=== PATIENT | female | born 1975 | race Asian ===

== ENCOUNTER 2020-12-23 12:27 | Emergency (ER) | payer OTHER ==
[~2020-12-23] VITALS: Ht 152.4 cm; Wt 61.8 kg
[2020-12-23 13:14] VITALS: BP 111/67
[2020-12-23 13:45] LABS: BILIRUBIN,URINE NEGATIVE (NEG); COLOR,URINE YELLOW; NITRITE,URINE NEGATIVE (NEG); PROTEIN,URINE 100 mg/dL (NEG-TRACE); UROBILINOGEN,URINE 0.2 mg/dL (0.2 mg/dL)
[2020-12-23 13:56] LABS: CLARITY,URINE HAZY
[2020-12-23 13:58] LABS: BACTERIA,URINE MANY /HPF (0-FEW); WBC,URINE >40 /HPF (0-4)
[2020-12-23] MEDS ORDERED: AMOX875T PO (14:38)
--- NOTE | 2020-12-23 14:38 | PHYS DOC ---
Past Medical History Past Medical History: Depression, Diabetes-Type II, High Cholesterol, Hyp ertension Past Surgical History: Smoking Status: Never Smoker Alcohol Use: None General Adult EDM: Chief Complaint: MULTIPLE COMPLAINTS HPI: HPI: Patient is a 45 year old female with history of diabetes type 2, hypertension, high cholesterol presenting with sore throat for 3 days and dysuria for 4 days. Denies any fever. Denies any difficulty swallowing. Review of Systems: Review of Systems: Constitutional: Denies fever or chills. [] Eyes: Denies change in visual acuity. [] HENT: Reports sore throat, denies any congestion Respiratory: Denies cough or shortness of breath. [] Cardiovascular: Denies chest pain or edema. [] GI: Denies abdominal pain, nausea, vomiting, bloody stools or diarrhea. [] : Reports dysuria Musculoskeletal: Denies back pain or joint pain. [] Integument: Denies rash. [] Neurologic: Denies headache, focal weakness or sensory changes. [] Psychiatric: Denies depression or anxiety. [] Heart Score: C/O Chest Pain: N/A Risk Factors: Risk Factors: DM, Current or recent (<one month) smoker, HTN, HLP, family his tory of CAD, obesity. Risk Scores: Score 0 - 3: 2.5% MACE over next 6 weeks - Discharge Home Score 4 - 6: 20.3% MACE over next 6 weeks - Admit for Clinical Observation Score 7 - 10: 72.7% MACE over next 6 weeks - Early Invasive Strategies Allergies: Allergies: Allergies Coded Allergies Type Severity Reaction Last Updated Verified No Known Drug Allergies 12/23/20 No Physical Exam: PE: Constitutional: Well developed, well nourished, no acute distress, non-toxic appearance. [] HENT: Normocephalic, atraumatic, bilateral external ears normal, oropharynx moist, no oral exudates, nose normal. [] Eyes: PERRLA, EOMI, conjunctiva normal, no discharge. [] Neck: Normal range of motion, no tenderness, supple, no stridor. [] Cardiovascular:Heart rate regular rhythm, no murmur [] Lungs & Thorax: Bilateral breath sounds clear to auscultation [] Abdomen: Bowel sounds normal, soft, no tenderness, no masses, no pulsatile masses. [] Skin: Warm, dry, no erythema, no rash. [] Back: No tenderness, no CVA tenderness. [] Extremities: No tenderness, no cyanosis, no clubbing, ROM intact, no edema. [] Neurologic: Alert and oriented X 3, normal motor function, normal sensory functi on, no focal deficits noted. [] Psychologic: Affect normal, judgement normal, mood normal. [] Current Patient Data: Labs: Laboratory Tests Test 12/23/20 12:56 12/23/20 13:06 12/23/20 13:48 Urine Collection Type Unknown Urine Color Yellow Urine Clarity Hazy Urine pH 6.0 (<5.0-8.0) Urine Specific [place] >=1.030 (1.000-1.030) Urine Protein 100 mg/dL (NEG-TRACE) Urine Glucose (UA) >=1000 mg/dL (NEG) Urine Ketones (Stick) Negative mg/dL (NEG) Urine Blood Moderate (NEG) Urine Nitrite Negative (NEG) Urine Bilirubin Negative (NEG) Urine Urobilinogen Dipstick 0.2 mg/dL (0.2 mg/dL) Urine Leukocyte Esterase Small (NEG) Urine RBC 3-5 /HPF (0-2) Urine WBC >40 /HPF (0-4) Urine Squamous Epithelial Cells Mod /LPF Urine Bacteria Many /HPF (0-FEW) POC Urine HCG, Qualitative Hcg negative (Negative) Group A Streptococcus Rapid Negative (NEGATIVE) Vital Signs: Vital Signs Date Time Temp Pulse Resp B/P (MAP) Pulse Ox O2 Delivery O2 Flow Rate FiO2 12/23/20 13:14 97.9 69 20 111/67 (82) 98 Room Air 97.9 EKG: EKG: [] Radiology/Procedures: Radiology/Procedures: [] Course & Med Decision Making: Course & Med Decision Making Pertinent Labs and Imaging studies reviewed. (See chart for details) This is a 45-year-old female patient with dysuria and a sore throat, negative rapid strep, positive for UTI, discharged with amoxicillin. Follow-up with PCP. Marlene Disclaimer: Marlene Disclaimer: This electronic medical record was generated, in whole or in part, using a voice recognition dictation system. Departure Departure Impression: Primary Impression: UTI (urinary tract infection) Qualified Codes: N39.0 - Urinary tract infection, site not specified Additional Impression: Acute viral pharyngitis Disposition: HOME / SELF CARE / HOMELESS Condition: STABLE Referrals: LAURO CRABTREE MD (PCP) follow up in one week Patient Instructions: Urinary Tract Infection, Viral and Bacterial Pharyngitis Additional Instructions: You have urinary tract infection, your strep test is negative. Take the prescribed antibiotics until completed. Follow-up with your primary care doctor in 1 week. You can use salt water gargles as needed for sore throat you can take Tylenol/Motrin for pain Scripts Amoxicillin (AMOXICILLIN) 875 Mg Tablet 1 TAB PO BID, #14 TAB Prov: ESTELITA GONZALEZ APRN 12/23/20 ESTELITA GONZALEZ APRN December 23, 2020 14:38
== END 2020-12-23 14:45 | disposition home or self-care (01) ==
LOC: ER 12:27
DX: N39.0 Urinary tract infection, site not specified (principal); J02.8 Acute pharyngitis due to other specified organisms; F32.9 Major depressive disorder, single episode, unspecified; E11.9 Type 2 diabetes mellitus without complications; E78.00 Pure hypercholesterolemia, unspecified; I10 Essential (primary) hypertension; Z98.890 Other specified postprocedural states
CPT/HCPCS: 81001; 81025; 87070; 87086; 87880; 99283

== ENCOUNTER 2020-12-30 10:37 | Emergency (ER) | payer OTHER ==
[~2020-12-30] VITALS: Ht 152.4 cm; Wt 60.9 kg
[~2020-12-30 10:37] MED LIST: AMOX875T PO
[2020-12-30 10:40] VITALS: BP 136/65
[2020-12-30 11:38] LABS: BILIRUBIN,URINE NEGATIVE (NEG); CLARITY,URINE CLEAR; COLOR,URINE YELLOW; NITRITE,URINE NEGATIVE (NEG); PH,URINE 5.5 (<5.0-8.0); PROTEIN,URINE NEGATIVE (NEG-TRACE); UROBILINOGEN,URINE 0.2 mg/dL (0.2 mg/dL)
[2020-12-30 12:00] LABS: BACTERIA,URINE 0 /HPF (0-FEW); RBC,URINE 0 /HPF (0-2); WBC,URINE 0 /HPF (0-4)
[2020-12-30] MEDS ORDERED: NYSTATIN 100,000 UNIT/GM TOPICAL CREAM 15GM TUBE. TP ONE (12:15)
--- NOTE | 2020-12-30 14:00 | RAD ---
US PELVIS W/TV DATE: 12/30/2020 12:47 PM HISTORY: pelvic pain. LMP: ? approximately 1 month ago. History of x2. COMPARISON: None. TECHNIQUE: Transabdominal and transvaginal pelvic ultrasound was performed. FINDINGS: The uterus measures 8.4 x 4.6 x 4.5 cm. Slightly lobular appearance along the anterior aspect of the uterus. The endometrial echo measures 5 mm. Trace fluid in the endometrial cavity. Nabothian cyst. The right ovary measures 3.0 x 3.2 x 1.9 cm. The left ovary measures 1.4 x 1.7 x 1.1 cm. The bilatera l ovaries are physiologic in appearance. Normal vascularity in the bilateral ovaries by color Doppler examination. IMPRESSION: 1. No evidence of ovarian torsion. 2. Slightly lobular appearance to the anterior aspect of the uterus could relate to underlying fibroi d or possibly postsurgical change given prior Electronically signed by: Jonel Fuentes MD (12/30/2020 1:57 PM) EMILEE
--- NOTE | 2020-12-30 14:12 | PHYS DOC ---
Past Medical History Past Medical History: Depression, Diabetes-Type II, High Cholesterol, Hyp ertension, Other Additional Past Medical Histor: CHRONIC BACK PAIN Past Surgical History: , Tubal ligation Smoking Status: Never Smoker Alcohol Use: None General Adult EDM: Chief Complaint: VAGINAL PROBLEM HPI: HPI: Patient is a 45 year old female with history of depression, diabetes type 2, hypertension, high cholesterol, who presents today complaining of vaginal itching, suprapubic pain, symptoms began 6 to 7 days ago. Patient was seen in the ED almost a week ago and was treated for UTI and pharyngitis with amoxicillin. Denies any concerns for STDs. Denies any fever. Denies any dysuria. Barley Steeper line was used for [facility] Review of Systems: Review of Systems: Constitutional: Denies fever or chills. [] Eyes: Denies change in visual acuity. [] HENT: Denies nasal congestion or sore throat. [] Respiratory: Denies cough or shortness of breath. [] Cardiovascular: Denies chest pain or edema. [] GI: Denies abdominal pain, nausea, vomiting, bloody stools or diarrhea. [] : Reports suprapubic pain, vaginal itching, denies dysuria. [] Musculoskeletal: Denies back pain or joint pain. [] Integument: Denies rash. [] Neurologic: Denies headache, focal weakness or sensory changes. [] Psychiatric: Denies depression or anxiety. [] Heart Score: C/O Chest Pain: N/A Risk Factors: Risk Factors: DM, Current or recent (<one month) smoker, HTN, HLP, family history of CAD, obesity. Risk Scores: Score 0 - 3: 2.5% MACE over next 6 weeks - Discharge Home Score 4 - 6: 20.3% MACE over next 6 weeks - Admit for Clinical Observation Score 7 - 10: 72.7% MACE over next 6 weeks - Early Invasive Strategies Current Medications: Current Medications Medications (Trade) Dose Ordered Sig/Karlo Start Time Stop Time Status Last Admin Dose Admin Nystatin (Mycostatin) 1 shavonne 1X ONCE 12/30/20 12:15 12/30/20 12:16 DC 12/30/20 12:25 1 SHAVONNE Allergies: Allergies: Allergies Coded Allergies Type Severity Reaction Last Updated Verified No Known Drug Allergies 12/23/20 No Physical Exam: PE: Constitutional: Well developed, well nourished, no acute distress, non-toxic appearance. [] HENT: Normocephalic, atraumatic, bilateral external ears normal, oropharynx moist, no oral exudates, nose normal. [] Eyes: PERRLA, EOMI, conjunctiva normal, no discharge. [] Neck: Normal range of motion, no tenderness, supple, no stridor. [] Cardiovascular:Heart rate regular rhythm, no murmur [] Lungs & Thorax: Bilateral breath sounds clear to auscultation [] Abdomen: Bowel sounds normal, soft, no tenderness, no masses, no pulsatile masses. [] Pelvic exam External pelvic appears normal, no lesions noted. Cervix is visualized, is closed, no CMT, no adnexal tenderness, trace amount of white discharge in the vaginal vault Skin: Warm, dry, no erythema, no rash. [] Back: No tenderness, no CVA tenderness. [] Extremities: No tenderness, no cyanosis, no clubbing, ROM intact, no edema. [] Neurologic: Alert and oriented X 3, normal motor function, normal sensory function, no focal deficits noted. [] Psychologic: Affect normal, judgement normal, mood normal. [] Current Patient Data: Labs: Laboratory Tests Test 12/30/20 11:00 Urine Collection Type Unknown Urine Color Yellow Urine Clarity Clear Urine pH 5.5 (<5.0-8.0) Urine Specific [place] 1.015 (1.000-1.030) Urine Protein Negative mg/dL (NEG-TRACE) Urine Glucose (UA) >=1000 mg/dL (NEG) Urine Ketones (Stick) Negative mg/dL (NEG) Urine Blood Negative (NEG) Urine Nitrite Negative (NEG) Urine Bilirubin Negative (NEG) Urine Urobilinogen Dipstick 0.2 mg/dL (0.2 mg/dL) Urine Leukocyte Esterase Negative (NEG) Urine RBC 0 /HPF (0-2) Urine WBC 0 /HPF (0-4) Urine Squamous Epithelial Cells Mod /LPF Urine Bacteria 0 /HPF (0-FEW) Microbiology 12/30/20 Wet Prep - Final, Complete Vital Signs: Vital Signs Date Time Temp Pulse Resp B/P (MAP) Pulse Ox O2 Delivery O2 Flow Rate FiO2 12/30/20 10:40 98.4 85 20 136/65 (88) 96 Room Air 98.4 EKG: EKG: [] Radiology/Procedures: Radiology/Procedures: []PROCEDURE: PELVIS W/TV US PELVIS W/TV DATE: 12/30/2020 12:47 PM HISTORY: pelvic pain. LMP: ? approximately 1 month ago. History of x2. COMPARISON: None. TECHNIQUE: Transabdominal and transvaginal pelvic ultrasound was performed. FINDINGS: The uterus measures 8.4 x 4.6 x 4.5 cm. Slightly lobular appearance along the anterior aspect of the uterus. The endometrial echo measures 5 mm. Trace fluid in the endometrial cavity. Nabothian cyst. The right ovary measures 3.0 x 3.2 x 1.9 cm. The left ovary measures 1.4 x 1.7 x 1.1 cm. The bilateral ovaries are physiologic in appearance. Normal vascularity in the bilateral ovaries by color Doppler examination. IMPRESSION: 1. No evidence of ovarian torsion. 2. Slightly lobular appearance to the anterior aspect of the uterus could relate to underlying fibroid or possibly postsurgical change given prior Electronically signed by: Abi Fuentes MD (12/30/2020 1:57 PM) [facility] DICTATED and SIGNED BY: ABI FUENTES MD DATE: 12/30/20 [id number] 0 Course & Med Decision Making: Course & Med Decision Making Pertinent Labs and Imaging studies reviewed. (See chart for details) This is a 45-year-old female patient presented to the ED today with vaginal itching and suprapubic pain, symptoms began 10 days ago. Patient was treated for UTI almost a week ago. Wet prep is negative, UA is negative. Bedside glucose is 105. Pelvic ultrasound noted for fibroids f/u with OB.Discharge to home with nystatin. Dragon Disclaimer: Dragon Disclaimer: This electronic medical record was generated, in whole or in part, using a voice recognition dictation system. Departure Departure Impression: Primary Impression: Vaginal itching Additional Impression: Fibroids Disposition: HOME / SELF CARE / HOMELESS Condition: STABLE Referrals: LAURO CRABTREE MD (PCP) follow up next week DAVID SCHREIBER MD follow up in 1-3 weeks Patient Instructions: Fibroids, [id number]-Ezia, Vaginitis, [id number] Additional Instructions: You have fibroids. Please see the [employer] provided in 1 to 3 weeks please apply the cream to the exterior vagina 3 times a day. You can take Benadryl as needed for itching. Follow-up with the primary care doctor next week. Consider taking probiotics for a week ESTELITA GONZALEZ APRN Dec 30, 2020 14:12
[2020-12-31 15:13] LABS: GC PROBE Negative (Negative)
== END 2020-12-30 14:48 | disposition home or self-care (01) ==
LOC: ER 10:37
DX: D36.7 Benign neoplasm of other specified sites (principal); L29.8 Other pruritus; F32.9 Major depressive disorder, single episode, unspecified; E11.9 Type 2 diabetes mellitus without complications; E78.00 Pure hypercholesterolemia, unspecified; I10 Essential (primary) hypertension; G89.29 Other chronic pain; Z98.51 Tubal ligation status
CPT/HCPCS: 76830; 76856; 81001; 82962; 87491; 87591; 99284; Q0111

== ENCOUNTER 2021-05-07 14:31 | Emergency (ER) | payer OTHER ==
[~2021-05-07] VITALS: Ht 152.4 cm; Wt 60.0 kg
[2021-05-07 15:36] LABS: BILIRUBIN,URINE NEGATIVE (NEG); CLARITY,URINE CLEAR; NITRITE,URINE NEGATIVE (NEG); PROTEIN,URINE NEGATIVE (NEG-TRACE); UROBILINOGEN,URINE 0.2 mg/dL (0.2 mg/dL)
[2021-05-07 15:46] LABS: COLOR,URINE STRAW; WBC,URINE >40 /HPF (0-4)
[2021-05-07 15:48] LABS: BACTERIA,URINE FEW /HPF (0-FEW)
[2021-05-07 16:03] VITALS: BP 116/69
[2021-05-07] MEDS ORDERED: CEPH500T PO ×2 (16:16→16:17)
[2021-05-07] MEDS ORDERED: PHEN100T82 PO ×2 (16:16→16:17)
--- NOTE | 2021-05-07 16:17 | PHYS DOC ---
Past Medical History Past Medical History: Depression, Diabetes-Type II, High Cholesterol, Hyp ertension, Other Additional Past Medical Histor: CHRONIC BACK PAIN Past Surgical History: , Tubal ligation Smoking Status: Never Smoker Alcohol Use: None General Adult EDM: Chief Complaint: PAIN ON URINATION HPI: HPI: Patient is a 45 year old female with a history of diabetes type 2, hypertension, high cholesterol, who presents to the ED today complaining of dysuria for 7 days. Patient denies any fever, nausea or vomiting. Patient is Persian speaking and traffic signal supervisor maintenance line was used but she spent a lot of time talking on the line Review of Systems: Review of Systems: Constitutional: Denies fever or chills. [] Eyes: Denies change in visual acuity. [] HENT: Denies nasal congestion or sore throat. [] Respiratory: Denies cough or shortness of breath. [] Cardiovascular: Denies chest pain or edema. [] GI: Denies abdominal pain, nausea, vomiting, bloody stools or diarrhea. [] : Reports dysuria Musculoskeletal: Denies back pain or joint pain. [] Integument: Denies rash. [] Neurologic: Denies headache, focal weakness or sensory changes. [] Psychiatric: Denies depression or anxiety. [] Heart Score: C/O Chest Pain: N/A Risk Factors: Risk Factors: DM, Current or recent (<one month) smoker, HTN, HLP, family history of CAD, obesity. Risk Scores: Score 0 - 3: 2.5% MACE over next 6 weeks - Discharge Home Score 4 - 6: 20.3% MACE over next 6 weeks - Admit for Clinical Observation Score 7 - 10: 72.7% MACE over next 6 weeks - Early Invasive Strategies Allergies: Allergies: Allergies Coded Allergies Type Severity Reaction Last Updated Verified No Known Drug Allergies 12/23/20 No Physical Exam: PE: Constitutional: Well developed, well nourished, no acute distress, non-toxic appearance. [] HENT: Normocephalic, atraumatic, bilateral external ears normal, oropharynx moist, no oral exudates, nose normal. [] Eyes: PERRLA, EOMI, conjunctiva normal, no discharge. [] Neck: Normal range of motion, no tenderness, supple, no stridor. [] Cardiovascular:Heart rate regular rhythm, no murmur [] Lungs & Thorax: Bilateral breath sounds clear to auscultation [] Abdomen: Bowel sounds normal, soft, no tenderness, no masses, no pulsatile masses. [] Skin: Warm, dry, no erythema, no rash. [] Back: No tenderness, no CVA tenderness. [] Extremities: No tenderness, no cyanosis, no clubbing, ROM intact, no edema. [] Neurologic: Alert and oriented X 3, normal motor function, normal sensory function, no focal deficits noted. [] Psychologic: Affect normal, judgement normal, mood normal. [] Current Patient Data: Labs: Laboratory Tests Test 05/07/21 15:27 Urine Collection Type Unknown Urine Color Straw Urine Clarity Clear Urine pH 6.0 (<5.0-8.0) Urine Specific [place] 1.025 (1.000-1.030) Urine Protein Negative mg/dL (NEG-TRACE) Urine Glucose (UA) >=1000 mg/dL (NEG) Urine Ketones (Stick) Negative mg/dL (NEG) Urine Blood Small (NEG) Urine Nitrite Negative (NEG) Urine Bilirubin Negative (NEG) Urine Urobilinogen Dipstick 0.2 mg/dL (0.2 mg/dL) Urine Leukocyte Esterase Moderate (NEG) Urine RBC 3-5 /HPF (0-2) Urine WBC >40 /HPF (0-4) Urine Squamous Epithelial Cells Occ /LPF Urine Bacteria Few /HPF (0-FEW) Vital Signs: Vital Signs Date Time Temp Pulse Resp B/P (MAP) Pulse Ox O2 Delivery O2 Flow Rate FiO2 05/07/21 16:03 97.6 100 16 116/69 (85) 96 Room Air 97.6 EKG: EKG: [] Radiology/Procedures: Radiology/Procedures: [] Course & Med Decision Making: Course & Med Decision Making Pertinent Labs and Imaging studies reviewed. (See chart for details) This 45-year-old female patient presented to the ED today with dysuria for 7 days. Positive for UTI, discharged on cephalexin and Pyridium. Instructed to push fluids, follow-up with PCP next week Marlene Disclaimer: Marlene Disclaimer: This electronic medical record was generated, in whole or in part, using a voice recognition dictation system. Departure Departure Impression: Primary Impression: UTI (urinary tract infection) Qualified Codes: N10 - Acute pyelonephritis Disposition: HOME / SELF CARE / HOMELESS Condition: STABLE Referrals: TUYET MARIN MD (PCP) Follow-up next week Patient Instructions: Urinary Tract Infection Additional Instructions: You have urinary tract infection. We will send a prescription for antibiotics to the pharmacy. Take the medicine as prescribed until completed. You can take Tylenol or Motrin for pain or fever you also have pyridium on your prescription for pain. Push fluids, follow-up with your doctor in 1 week Scripts Phenazopyridine Hcl (PYRIDIUM) 100 Mg Tablet 1 TAB PO TID for urinary discomfort for 2 Days, #6 TAB 0 Refills Prov: ESTELITA GONZALEZ APRN 05/07/21 Cephalexin (CEPHALEXIN) 500 Mg Tablet 1 TAB PO BID, #14 TAB Prov: ESTELITA GONZALEZ APRN 05/07/21 ESTELITA GONZALEZ APRN May 07, 2021 16:17
== END 2021-05-07 16:31 | disposition home or self-care (01) ==
LOC: ER 14:31
DX: N10 Acute pyelonephritis (principal); F32.9 Major depressive disorder, single episode, unspecified; E11.9 Type 2 diabetes mellitus without complications; E78.00 Pure hypercholesterolemia, unspecified; I10 Essential (primary) hypertension; G89.29 Other chronic pain; Z98.890 Other specified postprocedural states; Z98.51 Tubal ligation status
CPT/HCPCS: 81001; 87077; 87086; 99283

== ENCOUNTER 2021-08-25 10:25 | Emergency (ER) | payer OTHER ==
[~2021-08-25] VITALS: Ht 154.9 cm; Wt 61.5 kg
[~2021-08-25 10:25] MED LIST changes: +CEPH500T PO; +PHEN100T82 PO
[2021-08-25] MEDS ORDERED: DEXAMETHASONE 4 MG TABLET PO ONE (11:30)
--- NOTE | 2021-08-25 12:35 | RAD ---
EXAM: Chest, single view. HISTORY: Possible Covid 19. COMPARISON: None. FINDINGS: A frontal view of the chest is obtained. There is no infiltrate, pleural effusion or pneumo thorax. There is a prominent cardiac silhouette. IMPRESSION: No acute pulmonary finding. Electronically signed by: Crystal Duckworth MD (08/25/2021 12:32 PM) [id number]
[2021-08-25 12:37] LABS: INFLUENZA A PATIENT NEGATIVE (NEGATIVE); INFLUENZA B PATIENT NEGATIVE (NEGATIVE)
--- NOTE | 2021-08-25 12:51 | PHYS DOC ---
Past Medical History Past Medical History: Depression, Diabetes-Type II, High Cholesterol, Hyp ertension, Migraines, Other Additional Past Medical Histor: CHRONIC BACK PAIN Past Surgical History: , Tubal ligation Past Surgical History 2 previous C-sections, vertical and LTCS. Possible tubal ligation, patient is unsure of procedure for control. Additional Information: formerly used chewing tobacco for more than 10 years. Alcohol Use: None Drug Use: None Social History Patient is a non-smoker. Patient to tobacco starting 20 years ago but has since quit. Patient lives at home with son and daughter. She is on disability and does not work General Adult EDM: Chief Complaint: FEVER HPI: HPI: Ashley Watson is a 46-year-old female presenting to [facility] ED for productive cough, fever, chest pain, and malaise that started 2 days ago. A professional hourly sign language interpreter via telephone was utilized as patient speaks Maori and no Yakut. He presented today with her daughter who has similar symptoms. Patient was mildly out of breath while talking. She reports that her symptoms are progressively getting worse. She is afebrile at this visit and was coughing. Patient has been taking 500 mg of Tylenol in the morning, in the afternoon, and at night. She has been taking this these doses of Tylenol for the last 2 days. Taking Tylenol and drinking warm water help the patient's fever and symptoms. Nothing is making patient symptoms worse. Patient denies any other associated symptoms. Patient's chest pain is located at the upper chest near manubrium and is centralized. The pain occurs after coughing fits and continues for a few minutes after coughing. The pain is described as sharp and stinging. Patient previously had COVID- 19 pneumonia in April 2020. She has received two doses of the COVID-19 vaccination and her annual influenza vaccine in the Fall 2020. She has not recieved a booster vaccination for COVID 19-pneumonia. Review of Systems: Review of Systems: Constitutional: Reports fever and diaphoresis. Eyes: Denies redness or eye pain. Reports chronic dry eyes HENT: Report nasal congestion and sore throat Respiratory: Reports productive cough and mild shortness of breath Cardiovascular: Reports upper sternal chest pain when coughing that lingers for a few minutes after coughing. Denies other chest pain and palpitations GI: Denies abdominal pain, nausea, or vomiting. Reports chronic mild R flank pain : Reports dysuria with burning sensation, increased urgency and frequency, hematuria Musculoskeletal: reports back pain or joint pain Integument: Denies rash or skin lesions Neurologic: Reports migraines and occasional L arm numbness when sleeping. Otherwise no focal weakness or sensory changes Complete systems were reviewed and found to be within normal limits, except as documented in this note. Information was obtained via professional cae engineer on telephone. Heart Score: C/O Chest Pain: N/A Current Medications: Current Medications Medications (Trade) Dose Ordered Sig/Karlo Start Time Stop Time Status Last Admin Dose Admin Dexamethasone (Decadron) 10 mg 1X ONCE 08/25/21 11:30 08/25/21 11:31 DC 08/25/21 11:45 10 MG Allergies: Allergies: Allergies Coded Allergies Type Severity Reaction Last Updated Verified I S O L A T I O N *CONTACT* Allergy Unknown 05/11/21 Yes No Known Medication Allergies Allergy Unknown 05/11/21 Yes Physical Exam: PE: Constitutional: Well developed, obese, well nourished, mild acute distress, non- toxic appearance, nonfebrile HENT: Normocephalic, atraumatic, oropharynx mildy edematous and mildly hayes thematous, TM mild effusion b/l, edematous and erythematous nares Eyes: PERRL, EOMI, conjunctiva normal, no discharge Neck: Normal range of motion, no tenderness, supple, LAD anterior cervical Lungs & Thorax: Mild acute respiratory distress, productive coughing fits, equal chest rise and fall. Mild rales posterior lung banuelos b/l. no wheezing Cardiovascular: RRR with possible murmur (difficult to assess because patient body habitus).+2/4 pulses b/l UE and LE. Cap refill 1-2 seconds b/l UE Abdomen: Soft, no tenderness, tympanic x4Q, normactive BS x4Q, LTCS and vertical midline CS scar noted Skin: Warm, dry, no erythema, no rash Back: Mild Left flank tenderness, no CVA tenderness Extremities: No tenderness, no edema Neurologic: Alert and oriented X 3, normal motor function, normal sensory function, no focal deficits noted Psychologic: Affect normal, judgment normal Current Patient Data: Labs: Laboratory Tests Test 08/25/21 12:05 Influenza Type A Antigen Negative Influenza Type B Antigen Negative SARS-CoV-2 Antigen (Rapid) Positive Current Medications Medications (Trade) Dose Ordered Sig/Karlo Route PRN Reason Start Time Stop Time Status Last Admin Dose Admin Dexamethasone (Decadron) 10 mg 1X ONCE PO 08/25/21 11:30 08/25/21 11:31 DC 08/25/21 11:45 10 MG Vital Signs: Vital Signs Date Time Temp Pulse Resp B/P (MAP) Pulse Ox O2 Delivery O2 Flow Rate FiO2 08/25/21 10:45 98.4 82 17 112/56 (74) 98 Room Air 98.4 EKG: EKG: [] Radiology/Procedures: Radiology/Procedures: PROCEDURE: CHEST AP ONLY EXAM: Chest, single view. HISTORY: Possible Covid 19. COMPARISON: None. FINDINGS: A frontal view of the chest is obtained. There is no infiltrate, pleural effusion or pneumothorax. There is a prominent cardiac silhouette. IMPRESSION: No acute pulmonary finding. Electronically signed by: Crystal Duckworth MD (08/25/2021 12:32 PM) [id number] Course & Med Decision Making: Course & Med Decision Making Pertinent Labs and Imaging studies reviewed. (See chart for details) Is a 46-year-old female presenting to ED for fever, productive coughs, occasional chest pain and sore throat. She has a sick contact and presented today also with her sick 4-year-old daughter. A professional hourly sign language interpreter via the telephone was used as patient does not speak any Yakut. Patient symptoms started 2 days ago and have been progressively getting worse. He is mildly short of air when talking and after coughing fits. Patient has been vaccinated against COVID-19 has not received a booster shot. Has received her influenza vaccine in the fall 2020. Patient's past medical history positive for type 2 diabetes hypercholesterolemia depression migraines hypertension and chronic low back pain. Patient has had 2 prior C-sections and a possible tubal ligation. Patient is also reporting symptoms increased urinary frequency and urgency burning sensation when urinating and mild hematuria. Physical exam was positive for bilateral posterior lung field rales, erythematous oropharynx, edematous and erythematous nares. Patient's symptoms and medical history indicate possible upper respiratory infection. Rapid COVID-19 pneumonia and PCR, and influenza lab tests were ordered and obtained. Patient is positive with rapid COVID-19 test. Symptoms are congruent with COVID-19 pneumonia diagnosis. Treatment with 10 mg of Decadron p.o. was ini tiated for symptom relief. Patient is requesting a disability note. Chest x-ray was ordered due to patient's physical exam finding of bilateral posterior lung field rails and reported chest pain. Results showed normal lung banuelos and cardiomegaly. There are no signs of infection or pleural effusion. Urinary analysis was ordered for analysis and possible urinary tract infection. Patient stable for discharge with outpatient follow-up with PCP. Discussed findings and plan with patient, who acknowledges understanding and agreement. Marlene Disclaimer: Marlene Disclaimer: This electronic medical record was generated, in whole or in part, using a voice recognition dictation system. Departure Departure Impression: Primary Impression: COVID-19 Disposition: 01 HOME / SELF CARE / HOMELESS Condition: STABLE Referrals: NO PCP (PCP) Patient Instructions: Viral Syndrome Additional Instructions: You have been tested for or diagnosed with COVID-19. It is an infection caused by a new type of coronavirus. COVID-19 will cause cold-like or mild flu symptoms in most. It can cause more severe symptoms like problems breathing in some. There is no treatment for COVID-19. The body will clear the infection over time. Self-care will help to ease discomfort. Steps to Take: Self-Care Rest as needed. Healthy habits may help you feel better. Steps include: Choose healthy foods including fruits and vegetables. Drink water throughout the day. Get plenty of sleep each night. If you smoke, try to quit. It may ease breathing. Avoid alcohol. Keep Others Healthy The virus can spread to others. Droplets are released every time you sneeze or cough. The droplets can get into the mouth, nose, or eyes of people near you and lead to infection. To lower the chances of spreading COVID-19 to others: Stay at home until your doctor has said it is safe to leave. If you tested positive this will mean staying isolated until both of the following are true: At least 7 days have passed since the start of illness. You are free of fever for at least 72 hours without the use of medicine. During this time: - Avoid public areas, events, or transportation. Do not return to work or school until your doctor has said it is safe to do so. - Call ahead if you need to go to a medical center. Let them know you may have COVID-19. It will help them guide you where to go. They may also ask you to wear a facemask when you come to the office. - If you call for emergency medical services, let them know you may have COVID- 19. While at home: - Try to avoid close contact with others. Stay about 6 feet away. - If possible, spend most of your time in a separate room from others. - Use a face mask if you will be in close contact with others such as sharing a room or vehicle. - Have someone wipe down common surfaces in the home. Use household cold saw operator every day on areas like doorknobs, counters, or sinks. - Cough or sneeze into a tissue. Throw the tissue away right after use. If a tissue is not available, cough or sneeze into your elbow. - Wash your hands often. Wash them after sneezing or coughing. Use soap and water and wash for at least 20 seconds. Alcohol based hand glass mould cleaner can be used if soap and water is not available. - Do not prepare food for others. Avoid sharing personal items like forks, spoons, or toothbrushes. - Avoid close contact with pets while you are sick. There is no evidence of the virus passing to pets. This is a safety step until more is known about this virus. Isolation can be frustrating. Social interaction can help. Keep in touch with friends and family through phone and tech options. You can still interact with others in your home, just keep a safe distance of about 6 feet. Follow-up: Your doctors office will check in with you to see if there are any changes in your health. You may be asked to keep track of symptoms to share with them. They will also let you know when you are clear to be in public again. Problems to Look Out For: Contact your doctor if your recovery is not going as you expect. Get emergency care if you have problems such as: - Trouble breathing - Nonstop chest pain or pressure - Changes in awareness, confusion, or problems waking - Lips or face have bluish color - Worsening of symptoms If you think you have an emergency, call for emergency medical services right away. As taken from [facility] Scripts Benzonatate (BENZONATATE) 200 Mg Capsule 1 CAP PO TID PRN for COUGH for 10 Days, #30 CAP 0 Refills Prov: DAVID GUILLORY DO 08/25/21 DAVID GUILLORY DO Aug 25, 2021 12:51
[2021-08-25 12:56] LABS: BILIRUBIN,URINE NEGATIVE (NEG); CLARITY,URINE CLEAR; COLOR,URINE YELLOW; NITRITE,URINE NEGATIVE (NEG); PROTEIN,URINE 30 mg/dL (NEG-TRACE); UROBILINOGEN,URINE 0.2 mg/dL (0.2 mg/dL)
[2021-08-25 13:21] LABS: BACTERIA,URINE 0 /HPF (0-FEW); RBC,URINE 0 /HPF (0-2); WBC,URINE 0 /HPF (0-4)
[2021-08-25] MEDS ORDERED: BENZ200C47 PO (14:07)
[2021-08-25 14:18] VITALS: BP 119/63
== END 2021-08-25 14:20 | disposition home or self-care (01) ==
LOC: ER 10:25
DX: U07.1 COVID-19 (principal); E11.9 Type 2 diabetes mellitus without complications; E78.00 Pure hypercholesterolemia, unspecified; I10 Essential (primary) hypertension; G43.909 Migraine, unspecified, not intractable, without status migrainosus; G89.29 Other chronic pain; Z98.51 Tubal ligation status
CPT/HCPCS: 71045; 81001; 87428; 99284

== ENCOUNTER 2021-11-28 19:08 | Emergency (ER) | payer OTHER ==
[~2021-11-28] VITALS: Ht 152.4 cm; Wt 66.0 kg
[~2021-11-28 19:08] MED LIST changes: +BENZ200C47 PO
--- NOTE | 2021-11-28 19:23 | PHYS DOC ---
Past Medical History Past Medical History: Depression, Diabetes-Type II, High Cholesterol, Hyp ertension, Migraines, Other Additional Past Medical Histor: CHRONIC BACK PAIN Past Surgical History: No Surgical History Alcohol Use: None Drug Use: None General Adult EDM: Chief Complaint: GI PROBLEM HPI: HPI: Patient is a 46 year old female with history of diabetes type 2, hypertension, high cholesterol, who presents to the ED today complaining of 7 out of 10 generalized head pain, chest pain, abdominal pain, back pain, symptoms began 5 days ago. Patient denies any exacerbating or relieving factors to her pain. Denies any fever, nausea, vomiting. Denies any diarrhea. Patient is Czech speaking and interpretation is provided by family Review of Systems: Review of Systems: Constitutional: Denies fever or chills. [] Eyes: Denies change in visual acuity. [] HENT: Denies nasal congestion or sore throat. [] Respiratory: Denies cough or shortness of breath. [] Cardiovascular: Reports chest pain GI: Reports abdominal pain : Denies dysuria. [] Musculoskeletal: Denies back pain or joint pain. [] Integument: Denies rash. [] Neurologic: Reports headache, denies focal weakness or sensory changes. [] ] Psychiatric: Denies depression or anxiety. [] Heart Score: C/O Chest Pain: Yes HEART Score for Chest Pain: HEART Score for Chest Pain Response (Comments) Value History Slighlty/Non-Suspicious 0 ECG Normal 0 Age < 45 0 Risk Factors >3 Risk Factors or Hx CAD 2 Troponin < Normal Limit 0 Total 2 Risk Factors: Risk Factors: DM, Current or recent (<one month) smoker, HTN, HLP, family history of CAD, obesity. Risk Scores: Score 0 - 3: 2.5% MACE over next 6 weeks - Discharge Home Score 4 - 6: 20.3% MACE over next 6 weeks - Admit for Clinical Observation Score 7 - 10: 72.7% MACE over next 6 weeks - Early Invasive Strategies Current Medications: Current Medications Medications (Trade) Dose Ordered Sig/Karlo Start Time Stop Time Status Last Admin Dose Admin Acetaminophen (Tylenol) 1,000 mg 1X ONCE 11/28/21 19:30 11/28/21 19:31 UNV Famotidine (Pepcid Vial) 20 mg 1X ONCE 11/28/21 19:30 11/28/21 19:31 UNV Fentanyl Citrate (Fentanyl 2ml Vial) 50 mcg PRN Q15MIN PRN 11/28/21 19:30 11/29/21 19:29 UNV Allergies: Allergies: Allergies Coded Allergies Type Severity Reaction Last Updated Verified No Known Drug Allergies 11/28/21 No Physical Exam: PE: Constitutional: Well developed, well nourished, no acute distress, non-toxic appearance. [] HENT: Normocephalic, atraumatic, bilateral external ears normal, oropharynx moist, no oral exudates, nose normal. [] Eyes: PERRLA, EOMI, conjunctiva normal, no discharge. [] Neck: Normal range of motion, no tenderness, supple, no stridor. [] Cardiovascular:Heart rate regular rhythm, no murmur [] Lungs & Thorax: Bilateral breath sounds clear to auscultation [] Abdomen: Rounded abdomen. Bowel sounds normal, soft, no right upper quadrant tenderness, tenderness on the left side of the abdomen, no right lower quadrant tenderness, no masses, no pulsatile masses. [] Skin: Warm, dry, no erythema, no rash. [] Back: No tenderness, no CVA tenderness. [] Extremities: No tenderness, no cyanosis, no clubbing, ROM intact, no edema. [] Neurologic: Alert and oriented X 3, normal motor function, normal sensory function, no focal deficits noted. [] Psychologic: Affect normal, judgement normal, mood normal. [] Current Patient Data: Vital Signs: Vital Signs Date Time Temp Pulse Resp B/P (MAP) Pulse Ox O2 Delivery O2 Flow Rate FiO2 11/28/21 19:17 98.0 82 16 137/73 (94) 98 98.0 EKG: EK interpreted by Dr. Vigil sinus rhythm heart rate 74 no STEMI [] Radiology/Procedures: Radiology/Procedures: []PROCEDURE: CT ANGIO CHEST W ABD PEL W/ CTA chest abdomen pelvis with contrast dated 11/28/2021. COMPARISON: None. INDICATION: Chest pain. TECHNIQUE: Continues axial imaging the chest abdomen pelvis performed after the administration of 89 cc Isovue-370. Study was performed as dedicated CTA with thin cut coronal and sagittal MIPS reconstruction and 3-D rotational reconstruction One or more of the following individualized dose reduction techniques were utilized for this examination: 1. Automated exposure control 2. Adjustment of the mA and/or kV according to patient size 3. Use of iterative reconstruction technique. FINDINGS: Heart size within normal limits. No pericardial effusion. Thoracic aorta is normal in caliber. No intimal flap. No mediastinal, hilar or axillary lymphadenopathy. Thyroid gland is unremarkable. Contrast bolus is adequate. No evidence of central, lobar or proximal segmental pulmonary embolus. The subsegmental branches at the lung bases are not well evaluated due to cut off on the pulmonary arterial phase images. Central airways are patent. Lungs are clear. No consolidation or pleural effusion. No pneumothorax. Liver, spleen, pancreas, adrenal glands, gallbladder and kidneys are unremarkable. No hydronephrosis. Unopacified GI tract is normal in caliber and contour. No bowel wall thickening. There are a few scattered diverticula throughout the colon. The appendix is normal in caliber. No ascites or lymphadenopathy. Abdominal aorta normal in caliber. Images of pelvis show nondistended urinary bladder. Uterus and adnexa are unremarkable. No free fluid or lymphadenopathy. Bone window show no acute findings. Multilevel spondylosis. IMPRESSION: 1. No evidence of central, lobar or segmental pulmonary embolus. Subsegmental branches are not well evaluated based on technique. 2. Clear lungs. 3. Diverticulosis with no evidence of acute diverticulitis. Normal appendix. Electronically signed by: Nick Norton MD (11/28/2021 8:51 PM) [facility] [place] DICTATED and SIGNED BY: NICK NORTON MD DATE: 11/28/212029 Course & Med Decision Making: Course & Med Decision Making Pertinent Labs and Imaging studies reviewed. (See chart for details) This a 46-year-old female patient presenting to the ED today with complaints of generalized headache, chest pain, abdominal pain, back pain, symptoms for 5 days. Negative urine history G, UA negative for infection, CBC with hemoglobin of 11.9, hematocrit 35.8-this is patient's baseline. CMP with glucose of 132, anio n gap is normal. History of diabetes. Troponin is negative, EKG is negative CT of the chest, abdomen and pelvis is negative Discharged home. Follow-up with PCP in the course of this week Marlene Disclaimer: Marlene Disclaimer: This electronic medical record was generated, in whole or in part, using a voice recognition dictation system. Departure Departure Impression: Primary Impression: Chest pain Qualified Codes: R07.9 - Chest pain, unspecified Additional Impressions: Back pain Qualified Codes: M54.6 - Pain in thoracic spine Abdominal pain Qualified Codes: R10.84 - Generalized abdominal pain Headache Qualified Codes: R51.9 - Headache, unspecified Disposition: 01 HOME / SELF CARE / HOMELESS Condition: STABLE Referrals: NO PCP (PCP) Follow-up with your doctor in the course of this week Patient Instructions: Back Pain, Adult, Chest Pain (Nonspecific), Headache, FAQs Additional Instructions: Your CT of the chest, abdomen and pelvis are negative for any acute findings, your lab work is negative for any acute findings. Take the prescribed medications as ordered. Follow-up with your doctor in the course of this week or next week Scripts Dicyclomine Hcl (DICYCLOMINE HCL) 20 Mg Tablet 1 TAB PO TID, #30 TAB 1 Refill Prov: ESTELITA GONZALEZ APRN 11/28/21 ESTELITA GONZALEZ APRN November 28, 2021 19:23
[2021-11-28] MEDS ORDERED: FAMOTIDINE 20 MG/2 ML VIAL IVP ONE (19:30)
[2021-11-28] MEDS ORDERED: ACETAMINOPHEN 500 MG TABLET PO ONE (19:30)
[2021-11-28] MEDS ORDERED: fentaNYL PF VIAL 100 MCG/2 ML VIAL IV PRN (19:30)
[2021-11-28 19:38] LABS: BASO # 0.1 x10^3/uL (0.0-0.2); BASO % 1 % (0-3); EOS # 0.5 x10^3/uL (0.0-0.7); EOS % 6 % (0-3); HEMATOCRIT 35.8 % (36.0-47.0); HEMOGLOBIN 11.9 g/dL (12.0-15.5); LYMPH # 2.6 x10^3/uL (1.0-4.8); LYMPH % 34 % (24-48); MEAN CORPUSCULAR HEMOGLOBIN 28 pg (25-35); MEAN CORPUSCULAR HGB CONC 33 g/dL (31-37); MEAN CORPUSCULAR VOLUME 83 fL (79-100); MONO # 0.5 x10^3/uL (0.0-1.1); MONO % 6 % (0-9); NEUT % 53 % (31-73); PLATELET COUNT 195 x10^3/uL (140-400); RED BLOOD COUNT 4.33 x10^6/uL (3.50-5.40); RED CELL DISTRIBUTION WIDTH 13.3 % (11.5-14.5); WHITE BLOOD COUNT 7.7 x10^3/uL (4.0-11.0)
[2021-11-28 19:49] LABS: CALCIUM 8.7 mg/dL (8.5-10.1); CREATININE 0.6 mg/dL (0.6-1.0); GFR 108.6; POTASSIUM 3.8 mmol/L (3.5-5.1)
[2021-11-28 19:55] LABS: ALBUMIN 3.5 g/dL (3.4-5.0); MAGNESIUM 1.8 mg/dL (1.8-2.4); TOTAL BILIRUBIN 0.1 mg/dL (0.2-1.0); TOTAL PROTEIN 7.1 g/dL (6.4-8.2)
[2021-11-28] MEDS ORDERED: IOHEXOL 300 MG/ML 100ML VIAL. IV ONE (20:00)
[2021-11-28] MEDS ORDERED: IOHEXOL 350 MG/ML 100 ML VIAL. IV ONE (20:15)
[2021-11-28 20:16] LABS: BACTERIA,URINE 0 /HPF (0-FEW); RBC,URINE TNTC /HPF (0-2)
[2021-11-28 20:17] LABS: BARBITURATES NEG (NEG); BENZODIAZEPINES NEG (NEG); CANNABINOIDS NEG (NEG); COCAINE NEG (NEG); METHADONE NEG (NEG); OPIATES NEG (NEG); PHENCYCLIDINE NEG (NEG)
[2021-11-28 20:29] LABS: AMPHETAMINE/METHAMPHETAMINE NEG (NEG)
--- NOTE | 2021-11-28 20:53 | RAD ---
CTA chest abdomen pelvis with contrast dated 11/28/2021. COMPARISON: None. INDICATION: Chest pain. TECHNIQUE: Continues axial imaging the chest abdomen pelvis performed after the administration of 89 cc Isovue-3 70. Study was performed as dedicated CTA with thin cut coronal and sagittal MIPS reconstruction and 3 -D rotational reconstruction One or more of the following individualized dose reduction techniques were utilized for this examinat ion: 1. Automated exposure control 2. Adjustment of the mA and/or kV according to patient size 3. Use of iterative reconstruction technique. FINDINGS: Heart size within normal limits. No pericardial effusion. Thoracic aorta is normal in caliber. No int imal flap. No mediastinal, hilar or axillary lymphadenopathy. Thyroid gland is unremarkable. Contrast bolus is adequate. No evidence of central, lobar or proximal segmental pulmonary embolus. Th e subsegmental branches at the lung bases are not well evaluated due to cut off on the pulmonary joe rial phase images. Central airways are patent. Lungs are clear. No consolidation or pleural effusion. No pneumothorax. Liver, spleen, pancreas, adrenal glands, gallbladder and kidneys are unremarkable. No hydronephrosis. Unopacified GI tract is normal in caliber and contour. No bowel wall thickening. There are a few scat tered diverticula throughout the colon. The appendix is normal in caliber. No ascites or lymphadenopa thy. Abdominal aorta normal in caliber. Images of pelvis show nondistended urinary bladder. Uterus and adnexa are unremarkable. No free fluid or lymphadenopathy. Bone window show no acute findings. Multilevel spondylosis. IMPRESSION: 1. No evidence of central, lobar or segmental pulmonary embolus. Subsegmental branches are not well e valuated based on technique. 2. Clear lungs. 3. Diverticulosis with no evidence of acute diverticulitis. Normal appendix. Electronically signed by: Nick Norton MD (11/28/2021 8:51 PM) [facility]
[2021-11-28] MEDS ORDERED: DICY20TA PO (21:34)
[2021-11-28 22:23] VITALS: BP 145/74
--- NOTE | 2021-11-29 19:08 | EKG ---
[facility] [address] [place] [address] Test Date: 2021-11-28 Test Time: 20:17:58 Pat Name: ROSETTE SAM Department: Room: Gender: F Policy Checker: : 1975 Requested By: ESTELITA GONZALEZ Order Number: [id number] Reading MD: Measurements Intervals [place] Rate: 74 P: 36 OK: 164 QRS: 60 QRSD: 80 T: 47 QT: 392 QTc: 436 Interpretive Statements SINUS RHYTHM OTHERWISE NORMAL ECG RI6.02 No previous ECG available for comparison
== END 2021-11-28 22:18 | disposition home or self-care (01) ==
LOC: ER 19:08
DX: R07.89 Other chest pain (principal); G43.909 Migraine, unspecified, not intractable, without status migrainosus; R10.84 Generalized abdominal pain; M54.6 Pain in thoracic spine; E11.9 Type 2 diabetes mellitus without complications; E78.00 Pure hypercholesterolemia, unspecified; I10 Essential (primary) hypertension; G89.29 Other chronic pain
CPT/HCPCS: 36415; 71275; 74177; 80053; 80307; 81001; 81025; 83735; 84484; 85025; 93005; 96374; 96375; 99285; J3010; J3490; Q9967